=== PATIENT | male | born 1925 | race African-American/Black ===

== ENCOUNTER 2017-01-16 14:13 | Emergency (ER) | payer MEDICARE, OTHER ==
[~2017-01-16] VITALS: Ht 162.6 cm; Wt 77.1 kg
[2017-01-16 15:06] LABS: BASOPHILS % (AUTO) 0 % (0-10); EOSINOPHILS # (AUTO) 0.2 10^3/uL (0.0-0.3); EOSINOPHILS % (AUTO) 2 % (0-10); LYMPHOCYTES # (AUTO) 1.5 X 10^3 (1.0-4.0); LYMPHOCYTES % (AUTO) 21 % (12-44); MEAN CORPUSCULAR HEMOGLOBIN 32 PG (25-34); MEAN CORPUSCULAR HGB CONC 33 G/DL (32-36); MEAN CORPUSCULAR VOLUME 97 FL (80-99); MEAN PLATELET VOLUME 10.2 FL (7.4-10.4); MONOCYTES # (AUTO) 0.9 X 10^3 (0.0-1.0); MONOCYTES % (AUTO) 12 % (0-12); NEUTROPHILS # (AUTO) 4.8 X 10^3 (1.8-7.8); NEUTROPHILS % (AUTO) 65 % (42-75); PLATELET COUNT 189 10^3/uL (130-400); RED BLOOD COUNT 4.31 10^6/uL (4.35-5.85); RED CELL DISTRIBUTION WIDTH 14.2 % (10.0-14.5); WHITE BLOOD COUNT 7.5 10^3/uL (4.3-11.0)
[2017-01-16 15:15] LABS: INR 1.4 (0.8-1.4); PROTHROMBIN TIME PATIENT 17.1 SEC (12.2-14.7)
[2017-01-16 15:23] LABS: ALANINE AMINOTRANSFERASE 27 U/L (0-55); ALBUMIN 3.8 GM/DL (3.2-4.5); ANION GAP 9 MMOL/L (5-14); ASPARTATE AMINO TRANSFERASE 33 U/L (5-34); BILIRUBIN,TOTAL 0.4 MG/DL (0.1-1.0); BLOOD UREA NITROGEN 21 MG/DL (7-18); BUN/CREATININE RATIO 11; CARBON DIOXIDE 24 MMOL/L (21-32); CHLORIDE 105 MMOL/L (98-107); CREATININE SERUM 1.95 MG/DL (0.60-1.30); GFR ESTIMATED 39; GLUCOSE 102 MG/DL (70-105); POTASSIUM 4.7 MMOL/L (3.6-5.0); SODIUM 138 MMOL/L (135-145); TOTAL PROTEIN 6.8 GM/DL (6.4-8.2)
--- NOTE | 2017-01-16 15:23 | ED General ---
General Chief Complaint: Cough/Cold/Flu Symptoms Stated Complaint: FLU LIKE SYMPTOMS/COUGHING/N/V Nursing Triage Note: c/o intermittant cough x 1 month. White sputum reported. Pt in no acute distress. Nursing Sepsis Screen: No Definite Risk Source of Information: Patient Exam Limitations: No Limitations History of Present Illness Time Seen by Provider: 15:22 Initial Comments To ER with intermittent cough for one month. The cough is occasionally productive but not always. No fevers or chills. No fatigue. He does have rhinorrhea which is unusual for him. He has intermittent nausea and vomiting. Timing/Duration: Other (1 month) Severity: Mild Associated Systoms: Cough Constitutional: see HPI EENTM: see HPI Respiratory: see HPI, cough Cardiovascular: no symptoms reported Genitourinary: no symptoms reported Musculoskeletal: no symptoms reported Skin: no symptoms reported Psychiatric/Neurological: No Symptoms Reported Past Afkmuhh-Efeexy-Mdzumg Hx Patient Social History Alcohol Use: Denies Use Recreational Drug Use: No Smoking Status: Never a Smoker Recent Foreign Travel: No Contact w/Someone Who Travel: No Recent Infectious Disease Expo: No Surgeries History of Surgeries: Yes (pacemaker) Respiratory History of Respiratory Disorde: No Cardiovascular History of Cardiac Disorders: Yes Neurological History of Neurological Disord: No Genitourinary History of Genitourinary Disor: No Gastrointestinal History of Gastrointestinal Di: No Musculoskeletal History of Musculoskeletal Dis: No Endocrine History of Endocrine Disorders: No HEENT History of HEENT Disorders: No Cancer History of Cancer: No Psychosocial History of Psychiatric Problem: No Blood Transfusions History of Blood Disorders: No Physical Exam Vital Signs Vital Sign - Last 12Hours 01/16/ 14:38 Temp 97.2 Pulse 65 Resp 18 B/P (MAP) 106/77 Pulse Ox 98 O2 Delivery Room Air Capillary Refill : Less Than 3 Seconds General Appearance: No Apparent Distress, WD/WN Eyes: Bilateral Eye Normal Inspection, Bilateral Eye PERRL, Bilateral Eye EOMI HEENT: PERRL/EOMI, TMs Normal Neck: Full Range of Motion, Normal Inspection Respiratory: No Accessory Muscle Use, No Respiratory Distress, Rales (right base) Cardiovascular: Normal Peripheral Pulses (after nitroglycerin) Gastrointestinal: Normal Bowel Sounds, Non Tender, Soft Extremity: Normal Capillary Refill, Normal Inspection, No Swelling, No Other Neurologic/Psychiatric: Alert, Oriented x3, No Motor/Sensory Deficits Skin: Normal Color, Warm/Dry Progress/Results/Core Measures Results/Orders Lab Results Laboratory Tests Test 01/16/17 15:00 Range/Units White Blood Count 7.5 4.3-11.0 10^3/uL Red Blood Count 4.31 L 4.35-5.85 10^6/uL Hemoglobin 13.8 13.3-17.7 G/DL Hematocrit 42 40-54 % Mean Corpuscular Volume 97 80-99 FL Mean Corpuscular Hemoglobin 32 25-34 PG Mean Corpuscular Hemoglobin Concent 33 32-36 G/DL Red Cell Distribution Width 14.2 10.0-14.5 % Platelet Count 189 130-400 10^3/uL Mean Platelet Volume 10.2 7.4-10.4 FL Neutrophils (%) (Auto) 65 42-75 % Lymphocytes (%) (Auto) 21 12-44 % Monocytes (%) (Auto) 12 0-12 % Eosinophils (%) (Auto) 2 0-10 % Basophils (%) (Auto) 0 0-10 % Neutrophils # (Auto) 4.8 1.8-7.8 X 10^3 Lymphocytes # (Auto) 1.5 1.0-4.0 X 10^3 Monocytes # (Auto) 0.9 0.0-1.0 X 10^3 Eosinophils # (Auto) 0.2 0.0-0.3 10^3/uL Basophils # (Auto) 0.0 0.0-0.1 10^3/uL Prothrombin Time 17.1 H 12.2-14.7 SEC INR Comment 1.4 0.8-1.4 Sodium Level 138 135-145 MMOL/L Potassium Level 4.7 3.6-5.0 MMOL/L Chloride Level 105 98-107 MMOL/L Carbon Dioxide Level 24 21-32 MMOL/L Anion Gap 9 5-14 MMOL/L Blood Urea Nitrogen 21 H 7-18 MG/DL Creatinine 1.95 H 0.60-1.30 MG/DL Estimat Glomerular Filtration Rate 39 BUN/Creatinine Ratio 11 Glucose Level 102 70-105 MG/DL Calcium Level 9.0 8.5-10.1 MG/DL Total Bilirubin 0.4 0.1-1.0 MG/DL Aspartate Amino Transf (AST/SGOT) 33 5-34 U/L Alanine Aminotransferase (ALT/SGPT) 27 0-55 U/L Alkaline Phosphatase 157 H 40-136 U/L Troponin I < 0.30 <0.30 NG/ML B-Type Natriuretic Peptide 52.3 <100.0 PG/ML Total Protein 6.8 6.4-8.2 GM/DL Albumin 3.8 3.2-4.5 GM/DL My Orders Orders - SORAIDA BRANCH APRN Cbc With Automated Diff (01/16/17 14:31) Comprehensive Metabolic Panel (01/16/17 14:31) Troponin I (01/16/17 14:31) BNP (01/16/17 14:31) Protime With Inr (01/16/17 14:40) Chest Pa/Lat (2 View) (01/16/17 14:40) Vital Signs/I&O Vital Sign - Last 12Hours 01/16/17 14:38 Temp 97.2 Pulse 65 Resp 18 B/P (MAP) 106/77 Pulse Ox 98 O2 Delivery Room Air Blood Pressure Mean: 87 Diagnostic Imaging Diagonstic Imaging: Xray Plain Films/CT/US/NM/MRI: chest Comments NAME: VARUN COREA [facility] REC#: [id number] PT STATUS: REG ER : 1925 PHYSICIAN: SORAIDA BRANCH APRN ADMIT DATE: 01/16/17/ER Draft Date of Exam:01/16/17 CHEST PA/LAT (2 VIEW) EXAMINATION: PA and lateral chest at 3:28 p.m. INDICATION: Cough. COMPARISON: There are no prior studies available for comparison. FINDINGS: The heart size is within normal limits. There is a dual-lead pacemaker in place on the left. The pacer leads seem to be in good position. The descending thoracic aorta is somewhat tortuous. The lungs are clear. There is no evidence for failure, pneumonia, or for a pleural effusion. The mediastinum is not widened. The osseous structures are intact. The lateral view does show that there is severe degenerative disc and bony disease at L1-2 and L2-3. IMPRESSION: There is no evidence for an acute cardiopulmonary abnormality. Dictated on workstation # [id number] Dict: 01/16/17 1516 Trans: 01/16/17 1533 [id number] Interpreted by: ROBERT CARSON MD Electronically signed by: Departure Impression Impression: Primary Impression: Bronchitis Additional Impression: Postnasal drip Disposition: 01 HOME, SELF-CARE Condition: Stable Departure-Patient Inst. Decision time for Depature: 15:41 Referrals: MINA GÓMEZ MD (PCP/Family) Primary Care Physician Patient Instructions: Acute Bronchitis, Adult (DC) Add. Discharge Instructions: 1. Medication as directed 2. Return to ER for any concerns 3. Follow-up with your doctor next week All discharge instructions reviewed with patient and/or family. Voiced understanding. Scripts Methylprednisolone (Medrol) 4 Mg Tab.ds.pk 4 MG PO UD, #1 PKG Prov: SORAIDA BRANCH APRN 01/16/17 Cefuroxime Axetil (Cefuroxime) 250 Mg Tablet 250 MG PO BID, #14 TAB Prov: SORAIDA BRANCH APRN 01/16/17 Work/School Note: Local Medical Staff Listing SORAIDA BRANCH APRN Jan 16, 2017 15:23
[2017-01-16 15:26] LABS: TROPONIN I < 0.30 NG/ML (<0.30)
--- NOTE | 2017-01-16 15:34 | Diagnostic Imaging Report ---
EXAMINATION: PA and lateral chest at 3:28 p.m. INDICATION: Cough. COMPARISON: There are no prior studies available for comparison. FINDINGS: The heart size is within normal limits. There is a dual-lead pacemaker in place on the left. The pacer leads seem to be in good position. The descending thoracic aorta is somewhat tortuous. The lungs are clear. There is no evidence for failure, pneumonia, or for a pleural effusion. The mediastinum is not widened. The osseous structures are intact. The lateral view does show that there is severe degenerative disc and bony disease at L1-2 and L2-3. IMPRESSION: There is no evidence for an acute cardiopulmonary abnormality. Dictated by: Dictated on workstation # [id number]
[2017-01-16] MEDS ORDERED: METH4TAB PO (15:43)
[2017-01-16] MEDS ORDERED: CEFU250T80 PO (15:43)
[2017-01-16 16:18] VITALS: BP 110/70
== END 2017-01-16 16:18 | disposition home or self-care (01) ==
LOC: EDUNIT# 14:13 → ER 14:17
DX: J40 Bronchitis, not specified as acute or chronic (principal); R09.82 Postnasal drip; Z95.0 Presence of cardiac pacemaker
CPT/HCPCS: 36415; 71020; 80053; 83880; 84484; 85025; 85610

== ENCOUNTER 2017-01-23 15:16 | Emergency (ER) | payer MEDICARE ==
[~2017-01-23] VITALS: Ht 162.6 cm; Wt 77.1 kg
[~2017-01-23 15:16] MED LIST: CEFU250T80 PO; METH4TAB PO
--- NOTE | 2017-01-23 17:01 | ED Cough/URI ---
General Chief Complaint: Cough/Cold/Flu Symptoms Stated Complaint: COUGH;CONGESTION Nursing Triage Note: PT REPORTS COUGH AND SNEEZING X 1 MONTH. HE WAS SEEN AND TX IN THIS ED APPROX 1 WEEK AGO. HE STATES HIS SYMPTOMS ARE NOT IMPROVING. HE DENIES FEVER. History of Present Illness Time seen by provider: 16:30 Initial Comments Patient reports rhinitis, sneezing and clear respiratory phlegm. He reports no improvement or change in his symptoms after the antibiotic and prednisone dose pack, from evaluation 1 week ago in the emergency department. Timing/Duration: intermittent Severity/Quality: productive cough, sputum (clear) Prior Episodes/Possible Cause: occasional episodes Associated Symptoms: denies symptoms Allergies and Home Medications Allergies Coded Allergies: No Known Drug Allergies (Unverified , 01/16/17) Home Medications Cefuroxime Axetil 250 Mg Tablet, 250 MG PO BID, #14 Prescribed by: SORAIDA BRANCH on 01/16/17 1543 Fluticasone Propionate 15.8 Ml Wayne.susp, 15.8 ML NS BID, #1 Ref 2 1 spray each nare, twice daily Prescribed by: KAREN FARNSWORTH on 01/23/17 1703 Methylprednisolone 4 Mg Tab.ds.pk, 4 MG PO UD, #1 Prescribed by: SORAIDA BRANCH on 01/16/17 1543 Constitutional: no symptoms reported, see HPI EENTM: see HPI, nose congestion, other (postnasal drainage and cough) Respiratory: no symptoms reported, cough, phlegm Cardiovascular: no symptoms reported, see HPI Gastrointestinal: no symptoms reported, see HPI All Other Systems Reviewed Negative Unless Noted: Yes Past Lgscphm-Wyrsyk-Kmdzyb Hx Patient Social History Alcohol Use: Occasionally Uses Alcohol Beverage of Choice: Wine Recreational Drug Use: No Smoking Status: Former Smoker 2nd Hand Smoke Exposure: No Recent Foreign Travel: No Contact w/Someone Who Travel: No Recent Infectious Disease Expo: No Recent Hopitalizations: No Physical Abuse: No Sexual Abuse: No Seasonal Allergies Seasonal Allergies: No Surgeries History of Surgeries: Yes (pacemaker) Respiratory History of Respiratory Disorde: No Cardiovascular History of Cardiac Disorders: Yes Cardiac Disorders: Hypertension Neurological History of Neurological Disord: No Genitourinary History of Genitourinary Disor: No Gastrointestinal History of Gastrointestinal Di: No Musculoskeletal History of Musculoskeletal Dis: No Endocrine History of Endocrine Disorders: No HEENT History of HEENT Disorders: No Cancer History of Cancer: No Psychosocial History of Psychiatric Problem: No Suicide Risk Score: 0 Blood Transfusions History of Blood Disorders: No Reviewed Nursing Assessment Reviewed/Agree w Nursing PMH: Yes Physical Exam Vital Signs Vital Sign - Last 12Hours 01/23/17 16:20 Temp 96.9 Pulse 98 Resp 16 B/P (MAP) 140/90 Pulse Ox 98 O2 Delivery Room Air Capillary Refill : Less Than 3 Seconds General Appearance: no apparent distress Eyes: Bilateral Eye Normal Inspection, Bilateral Eye PERRL, Bilateral Eye EOMI HEENT: PERRL/EOMI, normal ENT inspection, TMs normal, pharynx normal, other ( no sinus tenderness, maxillary or frontal) Neck: non-tender, full range of motion, normal inspection, No lymphadenopathy ( R), No lymphadenopathy (L) Respiratory: chest non-tender, lungs clear, normal breath sounds Cardiovascular: normal peripheral pulses, regular rate, rhythm, no murmur Gastrointestinal: normal bowel sounds, non tender, soft Extremities: normal range of motion, non-tender, normal inspection Neurologic/Psychiatric: no motor/sensory deficits, alert, normal mood/affect, oriented x 3 Skin: normal color, warm/dry Progress/Results/Core Measures Results/Orders My Orders Orders - KAREN FARNSWORTH Dexamethasone Pf Injection (Decadron Pf (01/23/17 16:53) Dexamethasone Injection (Decadron Inject (01/23/17 17:02) Medications Given in ED Current Medications Medications Dose Ordered Sig/Maximilian Route Start Time Stop Time Status Last Admin Dose Admin Dexamethasone Sodium Phosphate 10 mg STK-MED ONCE .ROUTE 01/23/17 17:02 01/23/17 17:09 DC 01/23/17 17:20 10 MG Vital Signs/I&O Vital Sign - Last 12Hours 01/23/17 16:20 Temp 96.9 Pulse 98 Resp 16 B/P (MAP) 140/90 Pulse Ox 98 O2 Delivery Room Air Blood Pressure Mean: 107 Departure Impression Impression: Primary Impression: Allergic rhinitis Qualified Codes: J30.2 - Other seasonal allergic rhinitis Disposition: 01 HOME, SELF-CARE Condition: Stable Departure-Patient Inst. Decision time for Depature: 16:50 Referrals: MINA GÓMEZ MD (PCP/Family) Primary Care Physician Patient Instructions: Seasonal Allergies (DC) Add. Discharge Instructions: Use [id number] Zyrtec or Claritin daily. Increase water intake. Establish care with a primary care provider in [place]. Return to emergency department for difficulty breathing, discolored respiratory distress discharge, fever greater than 101, or new problems. All discharge instructions reviewed with patient and/or family. Voiced understanding. Scripts Fluticasone Propionate (Fluticasone Propionate) 15.8 Ml Wayne.susp 15.8 ML NS BID, #1 SPRAY 2 Refills 1 spray each nare, twice daily Prov: KAREN FARNSWORTH 01/23/17 Work/School Note: Local Medical Staff Listing KAREN FARNSWORTH Jan 23, 2017 17:01
[2017-01-23] MEDS ORDERED: FLUT15.88 NS (17:03)
[2017-01-23 17:19] VITALS: BP 140/90
[2017-01-23] MEDS: DEXAMETHASONE 10 MG/ML (DECADRON) 1 ML VIAL ONE (17:20)
[2017-01-23] MEDS: DEXAMETHASONE PF 10 MG/ML (DECADRON) VIAL IM STA (17:20)
== END 2017-01-23 17:19 | disposition home or self-care (01) ==
LOC: EDUNIT# 15:16 → ER 15:18
DX: J30.9 Allergic rhinitis, unspecified (principal); I10 Essential (primary) hypertension; Z95.0 Presence of cardiac pacemaker; Z87.891 Personal history of nicotine dependence
CPT/HCPCS: 99284

== ENCOUNTER 2017-04-15 15:59 | Emergency (ER) | payer MEDICARE ==
[~2017-04-15] VITALS: Ht 163.8 cm; Wt 74.8 kg
[~2017-04-15 15:59] MED LIST changes: +FLUT15.88 NS
[2017-04-15] MEDS ORDERED: GLIM2TAB PO (16:34)
[2017-04-15] MEDS ORDERED: FAMO40TA72 PO (16:34)
[2017-04-15] MEDS ORDERED: LOSA25TA21 PO (16:34)
[2017-04-15] MEDS ORDERED: WARF2.5T82 PO (16:34)
[2017-04-15] MEDS ORDERED: TRAM50TA2 PO (16:34)
[2017-04-15] MEDS ORDERED: NF-MAG64T PO (16:34)
[2017-04-15] MEDS ORDERED: PRAV40TA2 PO (16:34)
[2017-04-15] MEDS ORDERED: ALLO100T PO (16:34)
[2017-04-15] MEDS ORDERED: RT-ALBUTEROL SULF 2.5 MG/3 ML PRE-MIX VIAL INH STA (16:56)
--- NOTE | 2017-04-15 18:03 | Diagnostic Imaging Report ---
INDICATION: Three to four-month history of cough. Tingling all over body after coughing.. TECHNIQUE: Two view chest 6:07 PM CORRELATION STUDY: 03/10/2017 FINDINGS: Left-sided dual-chamber pacemaker remains in place. Heart size, mediastinum and vasculature is generally stable with a tortuous course of the thoracic aorta. Likely minimal atelectasis of the left lung base. Small area of pneumonitis not excluded. Right lung clear. Multilevel degenerative changes and bridging osteophytes of the thoracic spine. IMPRESSION: 1. Minimally increased density in the left lung base could reflect minimal area of atelectasis or a very small area of pneumonitis. Dictated by: Dictated on workstation # [id number]
--- NOTE | 2017-04-15 18:06 | ED Respiratory ---
General Chief Complaint: Cough/Cold/Flu Symptoms Stated Complaint: COUGH Nursing Triage Note: PT REPORTS COUGH X 3-4 MONTHS. STATES BELIEVES IT IS WORSENDING D/T WHEN HE COUGHS FORCEFULLY HE FEELS THAT HE IS GOING TO PASS OUT, FEELS TINGLING ALL OVER HIS BODY AFTER. REPORT THICK, WHITE MUCUS. WAS TAKING LISINOPRIL BUT JUAREZ DESHPANDE DNP DISCONTINUED IT D/T THE COUGH. PT REPORTS FEELING WEAK D/T COUGHING SO FREQUENTLY. DENIES ANY OTHER SYMPTOMS Source: patient, old records Exam Limitations: no limitations History of Present Illness Time seen by provider: 16:40 Initial Comments This 89-year-old gentleman presents to the emergency room with complaints of worsening cough for the past 3 or 4 months. He has a tickle in his throat and then a forceful cough that causes him to be lightheaded and have tingling in his extremities. He has discontinued lisinopril thinking that was a cause. He was switched to losartan. He thought this improved the coughing for a while but now coughing has worsened again. He is also using a steroid nasal spray. His been seen in this ER a few times in recent months for similar symptoms and for chest pain. He denies any fever. He has no history of asthma or COPD. He has had some sneezing. His chart was thoroughly reviewed to determine what treatments and workup have already been tried for his cough. Allergies and Home Medications Allergies Coded Allergies: No Known Drug Allergies (Unverified , 01/16/17) Home Medications Albuterol Sulfate 1 Puff Puff, 1-4 PUFF IH Q4H PRN for COUGH, #1 1 PUFF = 90 MCG Prescribed by: FLOYD PEPPER on 04/15/171813 Allopurinol 100 Mg Tablet, 100 MG PO DAILY, (Reported) Cefuroxime Axetil 250 Mg Tablet, 250 MG PO BID, #14 Prescribed by: SORAIDA BRANCH on 01/16/17 1543 Doxycycline Hyclate 100 Mg Tablet, 100 MG PO BID, #14 Prescribed by: FLOYD PEPPER on 04/15/174 Famotidine 40 Mg Tablet, 40 MG PO DAILY, (Reported) Fluticasone Propionate 15.8 Ml Lotus.susp, 15.8 ML NS BID, #1 Ref 2 1 spray each nare, twice daily Prescribed by: KAREN FARNSWORTH on 01/23/17 1703 Glimepiride 2 Mg Tablet, 2 MG PO DAILY, (Reported) Losartan Potassium 25 Mg Tablet, 25 MG PO DAILY, (Reported) Magnesium Chloride 64 Mg Tab, 64 MG PO, (Reported) Methylprednisolone 4 Mg Tab.ds.pk, 4 MG PO UD, #1 Prescribed by: SORAIDA BRANCH on 01/16/17 1543 Pravastatin Sodium 40 Mg Tablet, 40 MG PO DAILY, (Reported) Tramadol HCl 50 Mg Tablet, 50 MG PO, (Reported) Warfarin Sodium 2.5 Mg Tablet, 2.5 MG PO HS, (Reported) Constitutional: no symptoms reported EENTM: see HPI Respiratory: see HPI Cardiovascular: no symptoms reported Gastrointestinal: no symptoms reported Genitourinary: no symptoms reported Musculoskeletal: no symptoms reported Skin: no symptoms reported Psychiatric/Neurological: No Symptoms Reported Hematologic/Lymphatic: No Symptoms Reported Past Hlhhpmh-Bqdoay-Agmcyx Hx Patient Social History Alcohol Use: Regular Use Number of Drinks Today: Alcohol Beverage of Choice: Wine Recreational Drug Use: No Smoking Status: Former Smoker 2nd Hand Smoke Exposure: No Recent Foreign Travel: No Contact w/Someone Who Travel: No Recent Infectious Disease Expo: No Recent Hopitalizations: No Physical Abuse: No Sexual Abuse: No Mistreated: No Fear: No Immunizations Up To Date Tetanus Booster (TDap): Unknown Date of Pneumonia Vaccine: Apr 04, 2014 Seasonal Allergies Seasonal Allergies: No Surgeries History of Surgeries: Yes (pacemaker, HERNIA REPAIR) Surgeries: Cardiac, Gallbladder, Pacemaker, Tonsillectomy Respiratory History of Respiratory Disorde: Yes Respiratory Disorders: Pneumonia Currently Using CPAP: No Currently Using BIPAP: No Cardiovascular History of Cardiac Disorders: Yes Cardiac Disorders: High Cholesterol, Hypertension, Irregular Heartbeat Neurological History of Neurological Disord: No Genitourinary History of Genitourinary Disor: Yes Genitourinary Disorders: Renal Failure Gastrointestinal History of Gastrointestinal Di: No Musculoskeletal History of Musculoskeletal Dis: No Endocrine History of Endocrine Disorders: Yes Endocrine Disorders: Diabetes, Non-Insulin dep Are Your Blood Sugars Over 250: Yes (OCCASIONALLY ) HEENT History of HEENT Disorders: No Cancer History of Cancer: No Psychosocial History of Psychiatric Problem: No Suicide Risk Score: 1 Integumentary History of Skin or Integumenta: No Blood Transfusions History of Blood Disorders: No Physical Exam Vital Signs Vital Sign - Last 12Hours 04/15/17 04/15/17 16:18 17:15 Pulse 72 Resp 18 B/P (MAP) 139/90 (106) Pulse Ox 95 O2 Delivery Room Air Capillary Refill : Less Than 3 Seconds General Appearance: WD/WN, no apparent distress HEENT: PERRL/EOMI, normal ENT inspection, TMs normal, pharynx normal Neck: normal inspection Respiratory: lungs clear, normal breath sounds, no respiratory distress, no accessory muscle use Cardiovascular: regular rate, rhythm, no edema, no murmur Gastrointestinal: normal bowel sounds, non tender, soft Extremities: normal inspection, no pedal edema Neurologic/Psychiatric: lining caser II-XII nml as tested, no motor/sensory deficits, alert, normal mood/affect, oriented x 3 Skin: normal color, warm/dry Progress/Results/Core Measures Suspected Sepsis Recent Fever Within 48 Hours: No Infection Criteria Present: None New/Unexplained Altered Menta: No Sepsis Screen: No Definite Risk Sepsis Diagnosis: SIRS Temperature: Pulse: 72 Respiratory Rate: 18 Blood Pressure 139 /90 Mean: 106 Results/Orders My Orders Orders - FLOYD PERERA MD Chest Pa/Lat (2 View) (04/15/17 16:55) Albuterol Pre-Mix Nebs (Rt) (Proventil (04/15/17 16:56) Svn Sm Volume Nebulizer Rt-Rfs (04/15/17 16:56) Vital Signs/I&O Vital Sign - Last 12Hours 04/15/17 04/15/17 04/15/17 16:18 17:15 18:19 Pulse 72 80 Resp 18 18 B/P (MAP) 139/90 (106) Pulse Ox 95 94 O2 Delivery Room Air Room Air Room Air Capillary Refill : Less Than 3 Seconds Blood Pressure Mean: 106 Progress Note : Progress Note DuoNeb treatment was administered as a trial. This did improve his coughing and breathing somewhat. Chest x-ray was suggestive of possible early pneumonia. Doxycycline was selected as antibiotic of choice due to less risk of drug interactions as patient is on warfarin. He is advised to establish with a primary care provider soon as possible. Diagnostic Imaging Diagonstic Imaging: Xray Plain Films/CT/US/NM/MRI: chest Comments Chest x-ray reviewed by me and report reviewed. See report below: NAME: VARUN COREA [facility] REC#: [id number] PT STATUS: REG ER : 1925 PHYSICIAN: FLOYD PERERA MD ADMIT DATE: 04/15/17/ER Draft Date of Exam:04/15/17 CHEST PA/LAT (2 VIEW) INDICATION: Three to four-month history of cough. Tingling all over body after coughing.. TECHNIQUE: Two view chest 6:07 PM CORRELATION STUDY: 03/10/2017 FINDINGS: Left-sided dual-chamber pacemaker remains in place. Heart size, mediastinum and vasculature is generally stable with a tortuous course of the thoracic aorta. Likely minimal atelectasis of the left lung base. Small area of pneumonitis not excluded. Right lung clear. Multilevel degenerative changes and bridging osteophytes of the thoracic spine. IMPRESSION: 1. Minimally increased density in the left lung base could reflect minimal area of atelectasis or a very small area of pneumonitis. Dictated on workstation # [id number] Dict: 04/15/17 1753 Trans: 04/15/17 1802 [facility] [id number] Interpreted by: RASHARD MITCHELL DO Departure Impression Impression: Primary Impression: Cough Additional Impression: Pulmonary infiltrate in left lung on chest x-ray Disposition: 01 HOME, SELF-CARE Condition: Improved Departure-Patient Inst. Decision time for Depature: 18:10 Referrals: MAYRA PISANO MD NO,LOCAL PHYSICIAN (PCP) Primary Care Physician YEFRI BENDER MD Patient Instructions: Cough, Adult (DC) Add. Discharge Instructions: Your chest x-ray had some subtle markings in the left lower lung that could be early pneumonia. Complete your antibiotic as prescribed. Follow-up with a primary care provider within the next week. Use your inhaler as prescribed. You may take up to 4 puffs and a four-hour period of time. Return to the emergency room if symptoms are worsening. All discharge instructions reviewed with patient and/or family. Voiced understanding. Scripts Albuterol Sulfate (PROAIR HFA) 1 Puff Puff 1-4 PUFF IH Q4H Y for COUGH, #1 PUFF 1 PUFF = 90 MCG Prov: FLOYD PERERA MD 04/15/17 Doxycycline Hyclate (Doxycycline Hyclate) 100 Mg Tablet 100 MG PO BID, #14 TAB Prov: FLOYD PERERA MD 04/15/17 FLOYD PERERA MD Apr 15, 2017 18:06
[2017-04-15] MEDS ORDERED: RT-ALBUINH IH (18:14)
[2017-04-15] MEDS ORDERED: DOXY100T2 PO (18:14)
[2017-04-15 18:19] VITALS: BP 119/74
== END 2017-04-15 18:26 | disposition home or self-care (01) ==
LOC: EDUNIT# 15:59 → ER 16:01
DX: R91.8 Other nonspecific abnormal finding of lung field (principal); R05 Cough; E11.9 Type 2 diabetes mellitus without complications; E78.00 Pure hypercholesterolemia, unspecified; I10 Essential (primary) hypertension; Z95.0 Presence of cardiac pacemaker; Z90.89 Acquired absence of other organs; Z87.891 Personal history of nicotine dependence; Z79.01 Long term (current) use of anticoagulants
CPT/HCPCS: 71020; 94640; 99281